=== PATIENT | male | born 1990 | race Two or more races ===

== ENCOUNTER 2023-05-11 00:04 | Emergency (ER) | payer MEDICAID, OTHER ==
[~2023-05-11] VITALS: Ht 167.6 cm; Wt 73.4 kg
[2023-05-11 00:23] VITALS: BP 132/83; PULSE 86; RESP 16; TEMP 97.8
[2023-05-11 01:09] VITALS: O2SAT 95
[2023-05-11] MEDS ORDERED: ACETAMINOPHEN 325 MG TAB PO ONE (01:45)
[2023-05-11] MEDS ORDERED: IBUP-1456 PO (04:33)
[2023-05-11] MEDS ORDERED: CYCL-837 PO (04:33)
== END 2023-05-11 05:51 | disposition home or self-care (01) ==
LOC: ER 00:04
DX: S16.1XXA Strain of muscle, fascia and tendon at neck level, initial encounter (principal); S46.911A Strain of unspecified muscle, fascia and tendon at shoulder and upper arm level, right arm, initial encounter; S29.012A Strain of muscle and tendon of back wall of thorax, initial encounter; S20.219A Contusion of unspecified front wall of thorax, initial encounter; V43.62XA Car passenger injured in collision with other type car in traffic accident, initial encounter; Y93.89 Activity, other specified; Y92.488 Other paved roadways as the place of occurrence of the external cause; Y99.8 Other external cause status
CPT/HCPCS: 70450; 71046; 72125; 72128; 73030

== ENCOUNTER 2024-06-06 13:28 | Emergency (ER) | payer MEDICAID, OTHER ==
[~2024-06-06] VITALS: Ht 165.1 cm; Wt 74.4 kg
[~2024-06-06 13:28] MED LIST: CYCL-837 PO; IBUP-1456 PO
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
[2024-06-06] MEDS ORDERED: IBUP-1455 PO (16:57)
[2024-06-06] MEDS ORDERED: HYDR-4902 PO (16:57)
[2024-06-06 17:31] VITALS: BP 148/92; PULSE 78; RESP 18; O2SAT 94
== END 2024-06-06 17:33 | disposition home or self-care (01) ==
LOC: ER 13:28
DX: S62.393A Other fracture of third metacarpal bone, left hand, initial encounter for closed fracture (principal); S62.395A Other fracture of fourth metacarpal bone, left hand, initial encounter for closed fracture; W51.XXXA Accidental striking against or bumped into by another person, initial encounter; Y93.89 Activity, other specified; Y92.89 Other specified places as the place of occurrence of the external cause; Y99.8 Other external cause status
CPT/HCPCS: 29125; 73130

== ENCOUNTER → 2025-02-16 | Emergency (ER) | payer OTHER ==
[~2025-02-16] VITALS: Ht 167.6 cm; Wt 91.7 kg
[~2025-02-16] MED LIST changes: +HYDR-4902 PO; +IBUP-1455 PO
[2025-02-16 22:04] VITALS: BP 123/78; PULSE 70; RESP 18; TEMP 98.3; O2SAT 96
== END | disposition left against medical advice (07) ==
LOC: ER 22:03
DX: R07.89 Other chest pain (principal); M54.2 Cervicalgia; Z53.21 Procedure and treatment not carried out due to patient leaving prior to being seen by health care provider; V89.2XXA Person injured in unspecified motor-vehicle accident, traffic, initial encounter; Y93.89 Activity, other specified; Y92.488 Other paved roadways as the place of occurrence of the external cause; Y99.8 Other external cause status

== ENCOUNTER 2025-06-03 11:20 | Emergency (ER) | payer OTHER, MEDICAID ==
[~2025-06-03] VITALS: Ht 170.2 cm; Wt 73.6 kg
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
[2025-06-03] MEDS ORDERED: IBU600T PO (13:05)
--- NOTE | 2025-06-03 13:08 | DVH ---
INDICATION: pain COMPARISON: CT CERVICAL WITHOUT CONTRAST on DOS: 05/11/23 TECHNIQUE: 3 views of the cervical spine were obtained. FINDINGS: The cervical vertebral alignment is normal. The predental space is normal. The intervertebral disc spaces are well-maintained. No significant facet arthropathy is noted. No acute fracture, vertebral compression deformity or aggressive osseous lesions. The imaged lung apices are unremarkable. IMPRESSION: 1. No acute fracture.
[2025-06-03 14:07] VITALS: BP 142/91; PULSE 86; RESP 18; TEMP 98.1; O2SAT 98
== END 2025-06-03 14:10 | disposition home or self-care (01) ==
LOC: ER 11:20
DX: S16.1XXA Strain of muscle, fascia and tendon at neck level, initial encounter (principal); Z79.899 Other long term (current) drug therapy; V49.40XA Driver injured in collision with unspecified motor vehicles in traffic accident, initial encounter; Y93.89 Activity, other specified; Y92.488 Other paved roadways as the place of occurrence of the external cause; Y99.8 Other external cause status
CPT/HCPCS: 72040